=== PATIENT | male | born 1975 | race African-American/Black ===

== ENCOUNTER 2024-02-04 19:08 | Emergency (ER) | payer OTHER ==
[~2024-02-04] VITALS: Ht 188 cm; Wt 98.0 kg
[2024-02-04 19:14] VITALS: O2SAT 98
[2024-02-04] MEDS: TETANUS, DIPHTHERIA, PERTUSSIS VAC/PF 0.5ML (>10YR OLD) IM ONE (21:19)
[2024-02-04] MEDS: ACETAMINOPHEN 325MG TABLET PO ONE (22:19)
[2024-02-04] MEDS: KETOROLAC 30MG/ML VIAL IM ONE (22:33)
[2024-02-04] MEDS: BACITRACIN ZINC OINT UDPKT TOP ONE (22:55)
[2024-02-04] MEDS: LIDOCAINE HCL/PF 1% 10 MG/ML 5ML VIAL INFIL ONE (22:55)
[2024-02-04] MEDS ORDERED: BO1 TP (23:42)
[2024-02-05] VITALS: BP 133/85; PULSE 71; RESP 19; TEMP 36.94740; O2SAT 100
== END 2024-02-05 00:53 | disposition home or self-care (01) ==
LOC: ER 19:08
DX: S61.411A Laceration without foreign body of right hand, initial encounter (principal); X58.XXXA Exposure to other specified factors, initial encounter; Y93.89 Activity, other specified; Y92.89 Other specified places as the place of occurrence of the external cause; Y99.8 Other external cause status
CPT/HCPCS: 73130; 70486; 90715; 12002; 90471; 96372; 99285; J1885; J3490; Z7610 ×3